=== PATIENT | male | born 1995 | race Caucasian/White ===

== ENCOUNTER → 2019-01-17 | Outpatient (CLI) | payer OTHER, BC ==
[~2019-01-17] MED LIST: CALC-515 PO; CEPH-13 PO; D ME PO
== END ==
LOC: AMB 00:06
PROVIDERS: ATTEND Nurse Practitioner
DX: M25.512 Pain in left shoulder (principal); R07.81 Pleurodynia; M25.552 Pain in left hip; M79.641 Pain in right hand; V28.4XXA Motorcycle driver injured in noncollision transport accident in traffic accident, initial encounter
CPT/HCPCS: A0425; A0427

== ENCOUNTER 2019-01-18 00:44 | Emergency (ER) | payer OTHER, BC ==
[2019-01-18] MEDS ORDERED: NS(*) 0.9% 1000 ML BAG 1,000 ML IV ONE ×2 (00:55→03:15)
[2019-01-18] MEDS ORDERED: fentaNYL CITR 100 MCG/2 ML AMP IVP ONE (00:55)
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
[2019-01-18 01:25] LABS: PLATELET COUNT, AUTOMATED 261 K/uL (150-450)
[2019-01-18] MEDS ORDERED: EMS NS 0.9%(*) 1000 ML BAG 1,000 ML IV ONE (01:35)
[2019-01-18] MEDS ORDERED: IOPAMIDOL 76% 150 ML INFUS BTL 150 ML ONE (01:38)
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
[2019-01-18] MEDS ORDERED: HYDROMORPHONE HCL 1 MG/ML SYRINGE IVP ONE (02:15)
[2019-01-18] MEDS ORDERED: ONDANSETRON 4 MG/2 ML VIAL IVP ONE (02:25)
[2019-01-18] MEDS ORDERED: ONDANSETRON 4 MG/2 ML VIAL ONE (02:26)
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
[2019-01-18] MEDS ORDERED: DIPHTH/TETANUS/ACEL. PERTUSSIS IM ONLY ONE (02:45)
[2019-01-18 03:38] LABS: INR 1.19
[2019-01-18 03:45] VITALS: BP 129/81
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
== END 2019-01-18 04:14 | disposition short-term general hospital (02) ==
LOC: ER 00:59
DX: S36.039A Unspecified laceration of spleen, initial encounter (principal); S37.032A Laceration of left kidney, unspecified degree, initial encounter; E27.49 Other adrenocortical insufficiency; S22.32XA Fracture of one rib, left side, initial encounter for closed fracture; S42.022A Displaced fracture of shaft of left clavicle, initial encounter for closed fracture; S62.354A Nondisplaced fracture of shaft of fourth metacarpal bone, right hand, initial encounter for closed fracture; S62.646A Nondisplaced fracture of proximal phalanx of right little finger, initial encounter for closed fracture; V29.9XXA Motorcycle rider (driver) (passenger) injured in unspecified traffic accident, initial encounter
CPT/HCPCS: 36415; 70450; 70486; 71045; 71260; 72125; 72170; 73130; 74177; 83605; 85025; 85610; 85730; 86850; 86900; 86901; 86920; 90471; 90715; 96361; 96374; 96375; 99285; A4565; J1170; J2405; J3010; J7030; P9016; Q9967; 82040; 82247; 82310; 82374; 82435; 82565; 82947; 84075; 84132; 84155; 84295; 84450; 84460; 84520

== ENCOUNTER → 2019-01-18 | Outpatient (REF) | LOC: AMB 03:06 | PROVIDERS: ATTEND Nurse Practitioner | DX: S36.039A Unspecified laceration of spleen, initial encounter (principal); S37.039A Laceration of unspecified kidney, unspecified degree, initial encounter ==